=== PATIENT | male | born 1955 | race Caucasian/White ===

== ENCOUNTER → 2018-02-02 | Outpatient (CLI) | payer MEDICARE, OTHER | LOC: RAD 11:49 | DX: M50.31 Other cervical disc degeneration, high cervical region (principal); V89.2XXA Person injured in unspecified motor-vehicle accident, traffic, initial encounter; Z79.01 Long term (current) use of anticoagulants; Z95.0 Presence of cardiac pacemaker ==

== ENCOUNTER → 2022-03-03 | Outpatient (CLI) | payer MEDICARE, OTHER ==
[~2022-03-03] VITALS: Ht 188 cm; Wt 84.1 kg
[~2022-03-03] MED LIST: ALDACTONE25 M1 PO; BETAPACE120 M1 PO; FIORICET 325 MG1 TAB PO; KEPPRA1000 MG PO; KEPPRA250 MG PO; LAMICTAL150 MG PO; LASIX40 M1 PO; LIPITOR 40MG TA40 MG PO; MELATONIN10 MG PO; NEURONTIN300 M1 PO; PRADAXA 150MG150 MG PO; PROVIGIL200 M1 PO; ZOLOFT 100MG100 MG PO
[2022-03-03 10:54] VITALS: BP 114/82
[2022-03-03 11:00] VITALS: BP 115/78
[2022-03-03 11:15] VITALS: BP 116/83
[2022-03-03 11:30] VITALS: BP 118/75
[2022-03-03 11:45] VITALS: BP 117/80
== END ==
LOC: AMSURD 10:36
DX: U07.1 COVID-19 (principal); I25.10 Atherosclerotic heart disease of native coronary artery without angina pectoris
CPT/HCPCS: M0222